=== PATIENT | male | born 1985 | race Caucasian/White ===

== ENCOUNTER 2017-05-25 08:54 | Emergency (ER) | payer OTHER | END 2017-05-25 10:48 | disposition home or self-care (01) | LOC: ER1 08:54 | DX: T78.40XA Allergy, unspecified, initial encounter (principal); R22.1 Localized swelling, mass and lump, neck; Z88.1 Allergy status to other antibiotic agents; Z88.5 Allergy status to narcotic agent | CPT/HCPCS: 96374; 96375; 99284; J1200; J2930 ==